=== PATIENT | male | born 1950 | race Caucasian/White ===

== ENCOUNTER 2017-08-11 14:12 | Emergency (ER) | payer BC ==
[~2017-08-11 14:12] MED LIST changes: -ASPI-1471 PO; -ATR80PT PO; -LISI2.5T60 PO; -SAW450CA3 PO; -TICA90TA PO
[2017-08-11] MEDS ORDERED: HEPARIN* SOD/D5W 25000 U/500ML 500 ML IV ONE (14:23)
[2017-08-11] MEDS ORDERED: HEPARIN (PORC) 5000 UN/ML VIAL IVP ONE (14:25)
[2017-08-11] MEDS ORDERED: TENECTEPLASE 50 MG KIT IVP ONE (14:25)
[2017-08-11] MEDS ORDERED: ONDANSETRON 4 MG/2 ML VIAL IVP PRN (14:25)
[2017-08-11] MEDS ORDERED: CLOPIDOGREL BISULFATE 75MG TAB PO ONE (14:25)
--- NOTE | 2017-08-11 14:33 | EKG ---
FACILITY: [facility] [place] PATIENT NAME: TIEN ERNST : [id number] MR: [id number] V: [id number] EXAM DATE: ORDERING PHYSICIAN: JASMINE ZUNIGA TECHNOLOGIST: POWER Sinha Reason : STEMI Blood Pressure : / mmHG Vent. Rate : 065 BPM Atrial Rate : 065 BPM P-R Int : 160 ms QRS Dur : 072 ms QT Int : 386 ms P-R-T Axes : 069 065 079 degrees QTc Int : 401 ms Sinus rhythm with PAC ST elevation, consider inferolateral injury or acute infarct ACUTE [place] Abnormal ECG No previous ECGs available Confirmed by DAO BATISTA ([id number]) on 08/13/2017 3:28:17 PM Referred By: KELLI Confirmed By:DAO BATISTA
[2017-08-11 14:37] LABS: PLATELET COUNT, AUTOMATED 249 K/uL (150-450)
--- NOTE | 2017-08-11 14:41 | RADIOLOGY IMAGING REPORT ---
FACILITY: [facility] PATIENT NAME: Kvng Branham : 1950 MR: [id number] V: [id number] EXAM DATE: ORDERING PHYSICIAN: JASMINE ZUNIGA TECHNOLOGIST: Location: [facility] Patient: Kvng Branham : 1950 Visit/Account:[id number] Date of Sevice: 08/11/2017 Exam type: CHEST SINGLE AP History: STEMI Comparison: June 06, 2017. Findings: The lungs are free of acute effusions, infiltrates or edema. There is no evidence of a pneumothorax or pneumomediastinum. The cardiac silhouette is normal in size. The trachea is in midline. IMPRESSION: 1. No acute cardiopulmonary process is seen Report Dictated By: Sara Wilson MD at 08/11/2017 2:37 PM Report E-Signed By: Sara Wilson MD at 08/11/2017 2:38 PM WSN:[email or web address]
[2017-08-11 14:44] LABS: INR 0.97
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
[2017-08-11] MEDS ORDERED: NITROGLYCERIN 5 MG/ML VIAL 50 MG in D5W(*) 250 ML BAG 250 ML IVPB ONE (14:50)
[2017-08-11] MEDS ORDERED: NITROGLYCERN* 50 MG/D5W 250 ML 250 ML ONE (14:53)
--- NOTE | 2017-08-11 14:57 | EKG ---
FACILITY: [facility] PATIENT NAME: TIEN ERNST : [id number] MR: [id number] V: [id number] EXAM DATE: ORDERING PHYSICIAN: JASMINE ZUNIGA TECHNOLOGIST: POWER Sinha Reason : STEMI REPEAT Blood Pressure : / mmHG Vent. Rate : 058 BPM Atrial Rate : 058 BPM P-R Int : 164 ms QRS Dur : 082 ms QT Int : 412 ms P-R-T Axes : 066 052 073 degrees QTc Int : [address] elevation, consider inferior injury or acute infarct ACUTE [place] Abnormal ECG Confirmed by DAO BATISTA ([id number]) on 08/13/2017 3:29:11 PM Referred By: EFRAIN Confirmed By:DAO BATISTA
[2017-08-11] MEDS ORDERED: SAW450CA3 PO (15:01)
--- NOTE | 2017-08-11 15:05 | EKG ---
FACILITY: [facility] [place] PATIENT NAME: TIEN ERNST : [id number] MR: [id number] V: [id number] EXAM DATE: ORDERING PHYSICIAN: JASMINE ZUNIGA TECHNOLOGIST: PHILLIP Sinha Reason : CP Blood Pressure : / mmHG Vent. Rate : 062 BPM Atrial Rate : 062 BPM P-R Int : 164 ms QRS Dur : 082 ms QT Int : 406 ms P-R-T Axes : 066 049 075 degrees QTc Int : 412 ms Normal sinus rhythm ST elevation, consider inferior injury or acute infarct ACUTE [place] Abnormal ECG When compared with ECG of 11-AUG-2017 14:49, No significant change was found Confirmed by DAO BATISTA ([id number]) on 08/13/2017 3:29:23 PM Referred By: KELVIN Confirmed By:DAO BATISTA
[2017-08-11 15:15] VITALS: BP 129/78
[2017-08-11] MEDS ORDERED: EMS NS 0.9%(*) 1000 ML BAG 1,000 ML IV ONE (18:00)
[2017-08-11] MEDS ORDERED: NS(*) 0.9% 1000 ML BAG 1,000 ML IV ONE (18:05)
== END 2017-08-11 15:35 | disposition short-term general hospital (02) ==
LOC: ER 14:20
DX: I21.3 ST elevation (STEMI) myocardial infarction of unspecified site (principal)
CPT/HCPCS: 71045; 83735; 84484; 85025; 85610; 85730; 93005; 96361; 96365; 96367; 96375; 99285; 99291; J1644; J3101; J3490; J7030; J7060; 82040; 82247; 82310; 82374; 82435; 82565; 82947; 84075; 84132; 84155; 84295; 84450; 84460; 84520

== ENCOUNTER → 2017-08-11 | Outpatient (CLI) | payer BC ==
[~2017-08-11] MED LIST: ALF10 PO; ASPI-1471 PO; ASPI-715 PO; ATR80PT PO; CHOL200025 PO; CIPR-326 PO; DOC100 PO; ERG400 PO; FIN5 PO; LISI2.5T60 PO; LOR5 PO; MULT-1 PO; PANT40TA65 PO; PER PO; PYPLUS PO; RABE20TA33 PO; RANI150C17 PO; SAW450CA3 PO; SELE200T32 PO; TICA90TA PO
== END ==
LOC: AMB 13:55
PROVIDERS: ATTEND Nurse Practitioner
DX: R07.89 Other chest pain (principal); M25.512 Pain in left shoulder; M25.511 Pain in right shoulder; R94.31 Abnormal electrocardiogram [ECG] [EKG]
CPT/HCPCS: A0425; A0427

== ENCOUNTER → 2017-08-11 | Outpatient (CLI) | payer OTHER | LOC: AMB 14:43 | PROVIDERS: ATTEND Nurse Practitioner | DX: I21.3 ST elevation (STEMI) myocardial infarction of unspecified site (principal) ==

== ENCOUNTER 2017-11-14 10:00 | Outpatient (RCR) | payer MEDICARE, BC ==
[2017-08-18 15:41] VITALS: BP 104/72
[2017-08-18 15:44] VITALS: BP 110/83
--- NOTE | 2017-08-18 16:33 | CARDIAC REHAB PLAN OF CARE ---
Physician: MD Nabil Patient is being seen: Tawanda [facility] Diagnosis: STEMI, Stent x 1 Date of Initial Evaluation: 08/18/17 SHORT TERM GOALS Short Term Goals Due Date: 09/15/17 Short Term Goals: 66 year old male comes to cardiac rehab after a STEMI with 1 stent placed RCA on 2017. Patient is 5'9", 170 pounds in good general health with an active lifestyle including regular walking and outdoor activities of skiing and hiking. Short term goals are to begin the phase II protocol of 150 minutes each week of moderate level of cardio exercise and add in weight resistance at least twice a week. Patient will adjust diet towards a heart healthy diet with proper portions. Short Term Goals Met: Short Term Goals Not Met Due To: AUTO SERVICE ADVISOR GOALS Senior Living Goal Due Date: 10/16/17 Edi Programmer Goals: residential goals will be to maintain that consistent schedule and maintain that CR protocol along with exercise on non-CR days to reach the 150 minute goal each week. Patient will also maintain consistency for heart healthy meals. Edi Programmer Goals Met: Edi Programmer Goals Not Met Due To: PATIENT'S GOALS Patient Goals Due Date: 09/15/17 Patient Goals: Patient goals are to remain active and improve cardiac and overall health. Patient Goals Met: Patient Goals Not Met Due To: Cardiac Rehabilitation Plan of Care Comment: Cardiac rehab staff will monitor, record, and evaluate vitals, ECG, and exercise results to provide the best plan of care for the patient throughout the 36 visit phase II program. CR staff will educate and motivate the patient during visits for rehab. ANN MARIE
[2017-08-20 14:40] VITALS: BP 122/78
[2017-08-20 14:41] VITALS: BP 104/72
[2017-08-22 16:57] VITALS: BP_SYST 104; BP_SYST 98; BP_DIAS 64; BP_DIAS 68
[2017-08-25 17:22] VITALS: BP 108/58
[2017-08-25 17:23] VITALS: BP 114/62
[2017-08-27 18:20] VITALS: BP 124/72
[2017-08-27 18:21] VITALS: BP 94/68
[2017-09-01 12:59] VITALS: BP 118/62
[2017-09-01 13:00] VITALS: BP 118/74
[2017-09-05 17:22] VITALS: BP 118/70
[2017-09-05 17:23] VITALS: BP 120/64
[2017-09-08 12:40] VITALS: BP 98/68
[2017-09-08 12:41] VITALS: BP 94/70
[2017-09-10 13:10] VITALS: BP 122/70
[2017-09-10 13:11] VITALS: BP 104/70
[2017-09-12 13:32] VITALS: BP_SYST 117; BP_SYST 124; BP_DIAS 68; BP_DIAS 70
[2017-09-15 13:31] VITALS: BP 122/66
[2017-09-15 13:32] VITALS: BP 117/70
[2017-09-17 13:15] VITALS: BP 118/62
[2017-09-17 13:16] VITALS: BP 122/64
--- NOTE | 2017-09-17 17:48 | CARDIAC REHAB PLAN OF CARE ---
Physician: MD Navjot Patient is being seen: Tawanda Greenfield [facility] Diagnosis: STEMI, Stent x 1 Date of Initial Evaluation: 08/18/2017 SHORT TERM GOALS Short Term Goals Due Date: 10/18/17 Short Term Goals: 66 year old male comes to cardiac rehab after a STEMI with 1 stent placed RCA on 2017. Patient is 5'9", 170 pounds in good general health with an active lifestyle including regular walking and outdoor activities of skiing and hiking. Short term goals are to begin the phase II protocol of 150 minutes each week of moderate level of cardio exercise and add in weight resistance at least twice a week. Patient will adjust diet towards a heart healthy diet with proper portions. Short Term Goals Met: Patient has made 12 visits for cardiac rehab and tolerates 40 minutes of moderate level cardio exercise along with weight resistance exercise. During exercise SPO2 levels are maintained in the 90's on room air and the crude tester shows a NSR-ST without ectopy and rates up to 120, 77% of his max HR. 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 Weight resistance exercise at least twice a week. Patient will also continue to follow a heart healthy diet plan. Snf Goals Met: Patient has increased duration and intensity of exercise during the first 12 visits. Paper Cleaner Goals Not Met Due To: PATIENT'S GOALS Patient Goals Due Date: 10/18/17 Patient Goals: Patient goals remain to improve cardiac and overall health to extend life and remain active. Patient Goals Met: Patient Goals Not Met Due To: Cardiac Rehabilitation Plan of Care Comment: Cardiac rehab staff will continue to monitor, record, and evaluate vitals, ECG, and exercise results to provide the plan of care for the patient throughout the 36 visit phase II program. CR staff will continue to educate and motivate the patient during visits for rehab. ANN MARIE
[2017-09-19 13:45] VITALS: BP 100/70
[2017-09-19 13:46] VITALS: BP 94/62
[2017-09-22 17:50] VITALS: BP 104/70
[2017-09-22 17:52] VITALS: BP 94/64
[2017-09-24 13:24] VITALS: BP 102/70
[2017-09-24 13:26] VITALS: BP 102/62
[2017-09-26 12:48] VITALS: BP_SYST 100; BP_SYST 96; BP_DIAS 66; BP_DIAS 68
[2017-09-29 12:55] VITALS: BP 106/62
[2017-09-29 12:56] VITALS: BP 100/70
[2017-10-01 13:02] VITALS: BP_SYST 118; BP_SYST 120; BP_DIAS 66; BP_DIAS 78
[2017-10-03 16:43] VITALS: BP 118/62
[2017-10-03 16:44] VITALS: BP 100/62
[2017-10-06 17:30] VITALS: BP 112/66
[2017-10-06 17:32] VITALS: BP 96/64
[2017-10-08 12:57] VITALS: BP 116/66
[2017-10-08 12:58] VITALS: BP 108/62
[2017-10-10 12:54] VITALS: BP_SYST 100; BP_SYST 122; BP_DIAS 58; BP_DIAS 68
[2017-10-20 13:45] VITALS: BP 118/70
[2017-10-20 13:46] VITALS: BP 92/60
--- NOTE | 2017-10-20 17:06 | CARDIAC REHAB PLAN OF CARE ---
Physician: Navjot HARRIS Patient is being seen: Tawanda Greenfield [facility] Diagnosis: STEMI, Stent x 1 Date of Initial Evaluation: Aug 18, 2017 SHORT TERM GOALS Short Term Goals Due Date: 11/19/17 Short Term Goals: 66 year old male comes to cardiac rehab after a STEMI with 1 stent placed RCA on 2017. Patient is 5'9", 170 pounds in good general health with an active lifestyle including regular walking and outdoor activities of skiing and hiking. Short term goals are to begin the phase II protocol of 150 minutes each week of moderate level of cardio exercise and add in weight resistance at least twice a week. Patient will adjust diet towards a heart healthy diet with proper portions. Short Term Goals Met: Patient has made 23 visits for cardiac rehab and tolerates 42 minutes of a moderate level of cardio exercise, and follows that with weight resistance exercise. During exercise SPO2 levels are maintained in the 90's on room air and the court recording monitor shows a NSR-ST without ectopy and rates up to 118. 76% of his max HR. Patient has increases both duration and intensity of exercise. Short Term Goals Not Met Due To: TOOLER GOALS Store Coordinator Goal Due Date: 12/20/17 Store Coordinator Goals: buttermilk drier operator goals are to continue to maintain that consistency of exercise, achieving at least 150 minutes each week of a moderate level of cardio, along with weight resistance at least twice a week. Patient needs to also remain consistent with heart healthy meals. Store Coordinator Goals Met: Patient has increased duration and intensity of exercise. Patients tolerance of increased MET levels is excellent. Store Coordinator Goals Not Met Due To: PATIENT'S GOALS Patient Goals Due Date: 11/19/17 Patient Goals: Patient goals remain to improve heart health and overall health. Remain active and exertend life. Learn proper exercise and dietary needs to remain healthy. Patient Goals Met: Patient is motivated by the results of the phase II program after 23 visits, and has gradually increased duration and intensity of exercise. Patient Goals Not Met Due To: Cardiac Rehabilitation Plan of Care Comment: Cardiac rehab staff will continue to monitor, record, and evaluate vitals, ECG, and exercise results to provide the best plan of care throughout the phase II program. CR staff will motivate and educate the patient during visits for rehab. ANN MARIE
[2017-10-22 17:35] VITALS: BP 103/72
[2017-10-22 17:38] VITALS: BP 96/68
[2017-10-24 12:45] VITALS: BP 98/66
[2017-10-24 12:46] VITALS: BP 96/58
[2017-10-27 12:49] VITALS: BP_SYST 102; BP_SYST 108; BP_DIAS 58; BP_DIAS 66
[2017-10-29 12:54] VITALS: BP_SYST 102; BP_SYST 98; BP_DIAS 60
[2017-10-31 17:19] VITALS: BP 122/64
[2017-10-31 17:20] VITALS: BP 102/78
[2017-11-03 16:27] VITALS: BP 100/64
[2017-11-03 16:28] VITALS: BP 90/68
[2017-11-05 12:31] VITALS: BP 110/62
[2017-11-05 12:32] VITALS: BP 116/74
[2017-11-07 13:20] VITALS: BP 108/60
[2017-11-07 13:21] VITALS: BP 100/64
[2017-11-10 13:00] VITALS: BP 104/58
[2017-11-10 13:01] VITALS: BP 110/68
[2017-11-12 12:47] VITALS: BP 112/62
[2017-11-12 12:48] VITALS: BP 118/64
[~2017-11-14 10:00] MED LIST changes: +ASPI-1471 PO; +ATR80PT PO; +LISI2.5T60 PO; +PNEU0.5D3 IM; +SAW450CA3 PO; +TICA90TA PO
[2017-11-14 16:50] VITALS: BP 122/68
[2017-11-14 16:51] VITALS: BP 98/70
== END 2017-11-16 ==
LOC: CARD 10:00
PROVIDERS: ATTEND Internal Medicine Interventional Cardiology
DX: I25.2 Old myocardial infarction (principal); Z95.5 Presence of coronary angioplasty implant and graft
CPT/HCPCS: 93798

== ENCOUNTER 2017-11-19 10:00 | Outpatient (RCR) | payer MEDICARE ==
[2017-11-17 17:27] VITALS: BP 102/78
[2017-11-17 17:28] VITALS: BP 108/68
[2017-11-19 13:36] VITALS: BP 105/62
[2017-11-19 13:37] VITALS: BP 100/68
== END 2017-11-19 15:08 | disposition home or self-care (01) ==
LOC: CARD 10:00
PROVIDERS: ATTEND Internal Medicine Interventional Cardiology
DX: I25.2 Old myocardial infarction (principal); Z95.5 Presence of coronary angioplasty implant and graft
CPT/HCPCS: 93798